=== PATIENT | female | born 1965 | race Hispanic/Latino ===

== ENCOUNTER 2019-01-27 06:22 | Day surgery (SDC) | payer BC ==
[2019-01-20 16:29] VITALS: BMI 29.2
[2019-01-27] MEDS ORDERED: Propofol 10 mg/ml Inj (20 ML) ONE ×2 (07:45→08:04)
[2019-01-27] MEDS ORDERED: Sodium Chloride 0.9% 1,000 ML IV SCH (08:30)
[2019-01-27 09:06] VITALS: BP 121/67; PULSE 69; RESP 16; TEMP 98.1; O2SAT 98
== END 2019-01-27 09:33 | disposition home or self-care (01) ==
LOC: ENDO 06:22
PROVIDERS: ATTEND Specialist
DX: Z12.11 Encounter for screening for malignant neoplasm of colon (principal); D12.5 Benign neoplasm of sigmoid colon; D12.3 Benign neoplasm of transverse colon; K57.30 Diverticulosis of large intestine without perforation or abscess without bleeding; K64.8 Other hemorrhoids; K59.00 Constipation, unspecified; K62.5 Hemorrhage of anus and rectum; J45.909 Unspecified asthma, uncomplicated; E78.5 Hyperlipidemia, unspecified; M19.90 Unspecified osteoarthritis, unspecified site; E89.0 Postprocedural hypothyroidism; Z85.850 Personal history of malignant neoplasm of thyroid
CPT/HCPCS: 45380; 88305; J2001; J2704; J7030